=== PATIENT | female | born 1980 | race Hispanic/Latino ===

== ENCOUNTER 2017-11-16 09:30 | Inpatient (IN) | payer BC ==
[~2017-11-16] VITALS: Ht 154.9 cm; Wt 98.9 kg
[2017-11-16 10:53] LABS: HEMATOCRIT 35.1 % (36-48); MEAN CORPUSCULAR HEMOGLOBIN 32.1 pg (27.0-33.0); MEAN CORPUSCULAR HGB CONC 34.7 g/dL (32.0-36.0); MEAN CORPUSCULAR VOLUME 92.3 fL (79-99); PLATELET COUNT (AUTO) 126 K/uL (130-400); RED CELL DISTRIBUTION WIDTH 14.7 % (11.0-15.5); WHITE BLOOD COUNT (AUTO) 8.2 K/uL (4.8-10.8)
[2017-11-17 05:14] LABS: HEPATITIS Bs ANTIGEN SCREEN P Negative (Negative)
[2017-11-17] MEDS ORDERED: CEFAZOLIN SODIUM 1 GM VIAL IVP PRN (05:45)
[2017-11-17] MEDS ORDERED: LACTATED RINGERS 1000ML 1,000 ML IV SCH ×2 (05:45)
[2017-11-17] MEDS ORDERED: SENSORCAINE/DEXT/PF 0.75% 2ML AMP IJ ONE (06:39)
[2017-11-17] MEDS ORDERED: CEFAZOLIN SODIUM 1 GM VIAL IVP ONE (06:57)
[2017-11-17] MEDS ORDERED: OXYTOCIN 10 UNIT/1ML 10ML VIAL ONE (07:16)
[2017-11-17] MEDS ORDERED: ONDANSETRON HCL 4 MG/2 ML VIAL ONE (07:16)
[2017-11-17] MEDS ORDERED: DEXAMETHASONE SOD PHOSPHATE 10MG/ML 1ML VIAL ONE (07:16)
[2017-11-17] MEDS ORDERED: GLYCOPYRROLATE 0.2 MG/ML 5 ML VIAL ONE (07:16)
[2017-11-17 07:47] VITALS: BP 123/85
[2017-11-17] MEDS ORDERED: OXYTOCIN-LR 20 UNITS/1000 ML 1,000 ML IV PRN (08:40)
[2017-11-17] MEDS ORDERED: SODIUM CHLORIDE 0.9% 10 ML VIAL IVP PRN (08:45)
[2017-11-17] MEDS: PROMETHAZINE HCL 25 MG/ML 1ML AMPULE IM PRN ×2 (09:35→14:08)
[2017-11-17] MEDS: MEPERIDINE-PF 75 MG/ML SYG IM PRN ×2 (09:36→14:08)
[2017-11-17 09:55] VITALS: BP 99/70
[2017-11-17] MEDS ORDERED: CALDOLOR 800MG+NS 250ML 250 ML IV ONE (10:50)
[2017-11-17] MEDS ORDERED: ONDANSETRON HCL 4 MG/2 ML VIAL IVP PRN ×2 (11:15)
[2017-11-17] MEDS ORDERED: ONDANSETRON HCL 4 MG/2 ML 8 MG in SODIUM CHLORIDE 0.9% 50 ML IVP NR (11:15)
[2017-11-17] MEDS ORDERED: MORPHINE SULFATE 2 MG/ML 1ML SYG IVP PRN (11:15)
[2017-11-17] MEDS ORDERED: METOCLOPRAMIDE 10 MG/2 ML VIAL IVP PRN (11:15)
[2017-11-17] MEDS ORDERED: EPHEDRINE SULFATE 50 MG/ML AMPULE IVP PRN (11:15)
[2017-11-17] MEDS ORDERED: PROMETHAZINE HCL 25 MG/ML 1ML AMPULE IM PRN (11:15)
[2017-11-17] MEDS ORDERED: DiphenhydrAMINE HCL 50 MG/ML VIAL IVP PRN (11:15)
[2017-11-17] MEDS ORDERED: HYDROCODONE/ACETAMINOPHEN 5/325 MG TAB PO PRN (11:15)
[2017-11-17] MEDS ORDERED: NALOXONE HCL 0.4 MG/1 ML ML IVP PRN ×2 (11:15)
[2017-11-17 11:37] VITALS: BP 104/58
[2017-11-17] MEDS ORDERED: OXYTOCIN 10 USP UNITS/ML ONE (13:55)
[2017-11-17 16:02] VITALS: BP 122/58
[2017-11-17] MEDS: CALDOLOR 800MG+NS 250ML 250 ML IV SCH (18:45)
[2017-11-17] MEDS: HYDROCODONE/ACETAMINOPHEN 5/325 MG TAB PO PRN (19:02)
[2017-11-17 20:43] VITALS: BP 111/52
[2017-11-17] MEDS: DEXTROSE 5 %-0.45 % NACL 1,000 ML IV PRN (23:08)
[2017-11-17 23:50] VITALS: BP 103/65
[2017-11-18] MEDS: HYDROCODONE/ACETAMINOPHEN 5/325 MG TAB PO PRN (01:22)
[2017-11-18] MEDS: CALDOLOR 800MG+NS 250ML 250 ML IV SCH (02:27)
[2017-11-18 05:03] VITALS: BP 97/60
[2017-11-18] MEDS ORDERED: BISACODYL 10 MG SUPP.RECT RC PRN (05:15)
[2017-11-18] MEDS ORDERED: ACETAMINOPHEN EXTRA STRENGTH 500 MG TABLET PO PRN (05:15)
[2017-11-18] MEDS ORDERED: LANOLIN 30GM OINTMENT TP PRN (05:15)
[2017-11-18 05:17] LABS: MEAN CORPUSCULAR HEMOGLOBIN 33.2 pg (27.0-33.0); MEAN CORPUSCULAR VOLUME 92.4 fL (79-99); PLATELET COUNT (AUTO) 117 K/uL (130-400); RED BLOOD CELL COUNT(AUTO) 2.71 MIL/uL (4.00-5.50); RED CELL DISTRIBUTION WIDTH 14.3 % (11.0-15.5)
[2017-11-18] MEDS: DEXTROSE 5 %-0.45 % NACL 1,000 ML IV PRN (07:36)
[2017-11-18 07:53] VITALS: BP 116/74
[2017-11-18] MEDS: DOCUSATE SODIUM 100 MG CAP PO SCH ×2 (08:38→21:56)
[2017-11-18] MEDS: SIMETHICONE 80 MG TAB.CHEW PO PRN ×4 (08:38→21:56)
[2017-11-18] MEDS: IBUPROFEN 600 MG TABLET PO PRN ×3 (08:39→21:56)
[2017-11-18 11:40] VITALS: BP 110/69
[2017-11-18] MEDS: ACETAMINOPHEN-CODEINE 300/30MG TAB PO PRN ×2 (12:07→17:47)
[2017-11-18 16:00] VITALS: BP 116/73
[2017-11-18 20:37] VITALS: BP 121/74
[2017-11-19 01:13] VITALS: BP 111/57
[2017-11-19] MEDS: ACETAMINOPHEN-CODEINE 300/30MG TAB PO PRN (03:45)
[2017-11-19 04:50] VITALS: BP 109/67
[2017-11-19 07:56] VITALS: BP 99/58
[2017-11-19] MEDS: SIMETHICONE 80 MG TAB.CHEW PO PRN (08:23)
[2017-11-19] MEDS: DOCUSATE SODIUM 100 MG CAP PO SCH (08:23)
[2017-11-19] MEDS: IBUPROFEN 600 MG TABLET PO PRN (08:26)
[2017-11-19 12:07] VITALS: BP 114/75
== END 2017-11-19 13:30 | disposition home or self-care (01) | DRG 766 ==
LOC: EDSTATUS 09:30 → LDH 11-17 05:44 → WSH 11-17 09:55
PROVIDERS: ADMIT Obstetrics & Gynecology; ATTEND Obstetrics & Gynecology
PROC: 10D00Z1 Extraction of Products of Conception, Low, Open Approach (ICD-10-PCS; principal; 2017-11-17 07:00)
DX: O34.211 Maternal care for low transverse scar from previous cesarean delivery (principal); O36.60X0 Maternal care for excessive fetal growth, unspecified trimester, not applicable or unspecified; O69.81X0 Labor and delivery complicated by cord around neck, without compression, not applicable or unspecified; Z37.0 Single live birth; Z3A.39 39 weeks gestation of pregnancy
CPT/HCPCS: 36415; 59510; 85027; 86592; 86850; 86900; 86901; 87340; A4344; A4450; A4606; J0690; J1100; J1741; J2175; J2405; J2550; J2590; J3490; J7120